=== PATIENT | male | born 1970 | race Caucasian/White ===

== ENCOUNTER 2018-05-09 10:22 | Emergency (ER) | payer OTHER ==
[~2018-05-09] VITALS: Ht 195.6 cm; Wt 77.1 kg
[2018-05-09] MEDS ORDERED: HYDROCODONE-AP1 EAC6 PO (11:16)
[2018-05-09] MEDS ORDERED: ERYTHROMYCIN E3.5 G3 OPHTHALMIC (11:16)
[2018-05-09] MEDS ORDERED: IBUPROFEN 600600 M1 PO (11:16)
[2018-05-09] MEDS ORDERED: ONDANSETRON HCL4 M2 PO (11:21)
[2018-05-09 11:33] VITALS: BP 141/81
== END 2018-05-09 11:34 | disposition home or self-care (01) ==
LOC: ER 10:22
DX: T15.02XA Foreign body in cornea, left eye, initial encounter (principal); R11.0 Nausea; X58.XXXA Exposure to other specified factors, initial encounter; Y93.89 Activity, other specified; Y92.89 Other specified places as the place of occurrence of the external cause; Y99.8 Other external cause status